=== PATIENT | female | born 1995 | race African-American/Black ===

== ENCOUNTER 2016-12-25 01:34 | Emergency (ER) | payer MEDICAID ==
[2016-12-25] MEDS ORDERED: Ibuprofen 400 MG Tab PO ONE (01:47)
--- NOTE | 2016-12-25 01:51 | EDM.PDOC ---
ED HPI GENERAL MEDICAL PROBLEM - General Chief Complaint: Back Pain or Injury Stated Complaint: LOWER BACK PAIN AND EAR ACHE Time Seen by Provider: 12/25/16 01:40 - History of Present Illness INITIAL COMMENTS - FREE TEXT/NARRATIVE: HISTORY AND PHYSICAL: History of present illness: Patient 21-year-old black female presents with a concern of some lower back pain is worse with movement and bending she's had for 1 day and also cerumen impaction right ear been no fever chills nausea vomiting urinary symptoms abnormal bleeding urinary symptoms abdominal pain or other concerns Review of systems: As per history of present illness and below otherwise all systems reviewed and negative. Past medical history: As per history of present illness and as reviewed below otherwise noncontributory. Surgical history: As per history of present illness and as reviewed below otherwise noncontributory. Social history: No reported history of drug or alcohol abuse. Family history: As per history of present illness and as reviewed below otherwise noncontributory. Physical exam: HEENT: Atraumatic, normocephalic, pupils reactive, negative for conjunctival pallor or scleral icterus, mucous membranes moist, throat clear, neck supple, nontender, trachea midline. External auditory canal on the right is impacted with cerumen Lungs: Clear to auscultation, breath sounds equal bilaterally, chest nontender. Heart: S1S2, regular, negative for clicks, rubs, or JVD. Abdomen: Soft, nondistended, nontender. Negative for masses or hepatosplenomegaly. Negative for costovertebral tenderness. Pelvis: Stable nontender. Genitourinary: Deferred. Rectal: Deferred. Extremities: Atraumatic, negative for cords or calf pain. Neurovascular unremarkable. Neuro: Awake, alert, oriented. Cranial nerves II through XII unremarkable. Cerebellum unremarkable. Motor and sensory unremarkable throughout. Exam nonfocal. Back: Patient has some mild paravertebral tenderness at the level lumbar spine no vertebral body or point tenderness no CVA tenderness patient feels in her toes back on her heels deep tendon reflexes motor and sensory are normal Diagnostics: None Therapeutics: Motrin 400 mg by mouth Impression: #1 cerumen impaction right ear #2 muscle skeletal back pain Definitive disposition and diagnosis as appropriate pending reevaluation and review of above. left upper back Pain Score (Numeric/FACES): 8 - Related Data Allergies Allergy/AdvReac Type Severity Reaction Status Date / Time No Known Allergies Allergy Verified 12/25/16 01:38 Home Meds: Home Meds . [No Known Home Meds] 12/25/16 [History] ED ROS GENERAL - Review of Systems Review Of Systems: ROS reveals no pertinent complaints other than HPI. ED EXAM, GENERAL - Physical Exam Exam: See Below (The dictation) Course - Vital Signs Last Recorded V/S: Last Vital Signs Temp 36.4 C 12/25/16 01:34 Pulse 74 12/25/16 01:34 Resp 18 12/25/16 01:34 BP 134/84 12/25/16 01:34 Pulse Ox 98 12/25/16 01:34 - Orders/Labs/Meds Meds: Medications Discontinued Medications Generic Name Dose Route Start Last Admin Trade Name Freq PRN Reason Stop Dose Admin Ibuprofen 400 mg 12/25/16 01:47 Motrin PO 12/25/16 01:48 ONETIME ONE Departure - Departure Time of Disposition: 01:50 Disposition: Home, Self-Care 01 Condition: Good Clinical Impression: Musculoskeletal back pain, Impacted cerumen of right ear - Discharge Information Referrals: PCP,None [Primary Care Provider] - Additional Instructions: The following information is given to patients seen in the emergency department who are being discharged to home. This information is to outline your options for follow-up care. We provide all patients seen in our emergency department with a follow-up referral. The need for follow-up, as well as the timing and circumstances, are variable depending upon the specifics of your emergency department visit. If you don't have a primary care physician on staff, we will provide you with a referral. We always advise you to contact your personal physician following an emergency department visit to inform them of the circumstance of the visit and for follow-up with them and/or the need for any referrals to a consulting specialist. The emergency department will also refer you to a specialist when appropriate. This referral assures that you have the opportunity for followup care with a specialist. All of these measure are taken in an effort to provide you with optimal care, which includes your followup. Under all circumstances we always encourage you to contact your private physician who remains a resource for coordinating your care. When calling for followup care, please make the office aware that this follow-up is from your recent emergency room visit. If for any reason you are refused follow-up, please contact the [facility] emergency department at and asked to speak to the emergency department charge nurse. [facility] [address] [place] [phone] [address] otic drops as directed Motrin/Tylenol as directed otic lavages instructed follow-up clinic call to schedule routine appointment return as needed as discussed
== END 2016-12-25 02:05 | disposition home or self-care (01) ==
LOC: MW.ED 01:34
DX: H61.21 Impacted cerumen, right ear (principal); M54.5 Low back pain
CPT/HCPCS: 69209; 99283; A9270

== ENCOUNTER 2016-12-25 17:18 | Emergency (ER) | payer MEDICAID ==
--- NOTE | 2016-12-25 18:06 | EDM.PDOC ---
ED HPI GENERAL MEDICAL PROBLEM - General Chief Complaint: Back Pain or Injury Stated Complaint: BACK PAIN Time Seen by Provider: 12/25/16 18:05 Source of Information: Reports: Patient History Limitations: Reports: No Limitations - History of Present Illness INITIAL COMMENTS - FREE TEXT/NARRATIVE: History of present illness: [21-year-old female complaining of mid back pain. Patient indicates she was seen here in the ED and is taking [id number] NSAIDs without relief] Review of systems: As per history of present illness and below otherwise all systems reviewed and negative. Past medical history: As per history of present illness and as reviewed below otherwise noncontributory. Surgical history: As per history of present illness and as reviewed below otherwise noncontributory. Social history: No reported history of drug or alcohol abuse. Family history: As per history of present illness and as reviewed below otherwise noncontributory. Physical exam: HEENT: Atraumatic, normocephalic, pupils reactive, negative for conjunctival pallor or scleral icterus, mucous membranes moist, throat clear, neck supple, nontender, trachea midline. Lungs: Clear to auscultation, breath sounds equal bilaterally, chest nontender. Heart: S1S2, regular, negative for clicks, rubs, or JVD. Abdomen: Soft, nondistended, nontender. Negative for masses or hepatosplenomegaly. Negative for costovertebral tenderness. Pelvis: Stable nontender. Genitourinary: Deferred. Rectal: Deferred. Extremities: Atraumatic, negative for cords or calf pain. Neurovascular unremarkable. Neuro: Awake, alert, oriented. Cranial nerves II through XII unremarkable. Cerebellum unremarkable. Motor and sensory unremarkable throughout. Exam nonfocal. Diagnostics: [Chest x-ray lumbar x-ray] Therapeutics: [Toradol IM, Norflex IM] Impression: [] Plan: [] Definitive disposition and diagnosis as appropriate pending reevaluation and review of above. Left Middle Back Pain Score (Numeric/FACES): 10 - Related Data Allergies Allergy/AdvReac Type Severity Reaction Status Date / Time No Known Allergies Allergy Verified 12/25/16 17:37 Home Meds: Home Meds . 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: - Past Surgical History Female Surgical History: Reports: Section Social & Family History - Family History Family Medical History: Noncontributory - Tobacco Use Smoking Status *Q: Current Every Day Smoker Years of Tobacco use: 2 Packs/Tins Daily: 0.3 - Caffeine Use Caffeine Use: Reports: None - Recreational Drug Use Recreational Drug Use: No ED ROS GENERAL - Review of Systems Review Of Systems: See Below (See history of present illness) ED EXAM, GENERAL - Physical Exam Exam: See Below (See history of present illness) Course - Vital Signs Last Recorded V/S: Last Vital Signs Temp 35.8 C 12/25/16 17:36 Pulse 66 12/25/16 17:36 Resp 16 12/25/16 17:36 BP 123/72 12/25/16 17:36 Pulse Ox 98 12/25/16 17:36 - Orders/Labs/Meds Orders: Active Orders 24 hr Category Date Time Status Chest 2V [CR] Stat Exams 12/25/16 18:09 Ordered Lumbar Spine 2 or 3V [CR] Stat Exams 12/25/16 18:09 Ordered HCG QUALITATIVE,URINE [URCHEM] Stat Lab 12/25/16 18:12 Ordered Orphenadrine [Norflex] Med 12/25/16 18:15 Active 60 mg IM Q12H Medication Orders Orphenadrine Citrate (Norflex) 60 mg IM Q12H HERLINDA Meds: Medications Generic Name Dose Route Start Last Admin Trade Name Freq PRN Reason Stop Dose Admin Orphenadrine Citrate 60 mg 12/25/16 18:15 Norflex IM Q12H HERLINDA Discontinued Medications Generic Name Dose Route Start Last Admin Trade Name Freq PRN Reason Stop Dose Admin Ketorolac Tromethamine 60 mg 12/25/16 18:14 Toradol IM 12/25/16 18:15 ONETIME ONE Departure - Departure Time of Disposition: 19:07 Disposition: Eloped 07 Condition: Good Clinical Impression: Musculoskeletal back pain - Discharge Information Referrals: PCP,None [Primary Care Provider] - Forms: ED Department Discharge - My Orders Last 24 Hours: My Active Orders 12/25/16 18:09 Chest 2V [CR] Stat Lumbar Spine 2 or 3V [CR] Stat 12/25/16 18:12 HCG QUALITATIVE,URINE [URCHEM] Stat 12/25/16 18:15 Orphenadrine [Norflex] 60 mg IM Q12H - Assessment/Plan Last 24 Hours: My Active Orders 12/25/16 18:09 Chest 2V [CR] Stat Lumbar Spine 2 or 3V [CR] Stat 12/25/16 18:12 HCG QUALITATIVE,URINE [URCHEM] Stat 12/25/16 18:15 Orphenadrine [Norflex] 60 mg IM Q12H
[2016-12-25] MEDS ORDERED: Ketorolac 60 MG/2 ML SDV IM ONE (18:14)
== END 2016-12-25 19:06 | disposition left against medical advice (07) ==
LOC: MW.ED 17:18
DX: M54.6 Pain in thoracic spine (principal); F17.210 Nicotine dependence, cigarettes, uncomplicated
CPT/HCPCS: 99282; 99283